=== PATIENT | female | born 1955 | race African-American/Black ===

== ENCOUNTER 2019-07-10 17:30 | Emergency (ER) | payer MEDICARE, MEDICAID ==
[~2019-07-10] VITALS: Ht 174.2 cm; Wt 100.0 kg
[2019-07-10] MEDS ORDERED: IBUPROFEN 800MG TABLET PO ONE (19:15)
[2019-07-10] MEDS ORDERED: ACETAMINOPHEN 500MG TABLET PO ONE (19:15)
[2019-07-10 20:14] VITALS: BP 134/81
== END 2019-07-10 21:58 | disposition home or self-care (01) ==
LOC: ER 17:30
DX: M71.21 Synovial cyst of popliteal space [Baker], right knee (principal); M25.561 Pain in right knee; E11.9 Type 2 diabetes mellitus without complications; E78.00 Pure hypercholesterolemia, unspecified; I10 Essential (primary) hypertension; Z98.890 Other specified postprocedural states
CPT/HCPCS: 93970; 99284